=== PATIENT | female | born 1995 | race Caucasian/White ===

== ENCOUNTER 2017-01-18 15:27 | Emergency (ER) | payer MEDICAID ==
[2017-01-18 16:05] VITALS: TEMP 99; BMI 28.2
[2017-01-18] MEDS ORDERED: Sodium Chloride 0.9% 1,000 ML IV STA (16:33)
[2017-01-18 17:07] LABS: ADD MANUAL DIFF? NO
[2017-01-18 17:15] LABS: BASO # 0.02 K/mm3 (0.0-2.0); BASO % 0.3 % (0.0-3.0); EOS # 0.1 (0.0-0.7); EOS % 1.3 % (1.5-5.0); GRAN # 2.86 (1.4-6.5); HEMATOCRIT 39.1 % (36.0-48.0); LYMPH # 2.9 (1.2-3.4); LYMPH % 45.4 % (22.0-35.0); MEAN CELL VOLUME 87.7 fL (80.0-105.0); MEAN CORPUSCULAR HEMOGLOBIN 29.6 pg (25.0-35.0); MEAN CORPUSCULAR HGB CONC 33.8 g/dl (31.0-37.0); MEAN PLATELET VOLUME 10.2 fl (7.0-11.0); MONO # 0.5 (0.1-0.6); PLATELET COUNT 360 10^3/uL (120.0-450.0); RED CELL DISTRIBUTION WIDTH 13.4 % (11.5-14.5); WHITE BLOOD COUNT 6.4 10^3/ul (4.5-11.0)
[2017-01-18 17:23] LABS: INR 1.12 (0.93-1.08); PARTIAL THROMBOPLASTIN TIME 29.5 Seconds (23.7-30.8)
[2017-01-18 17:25] LABS: ALB/GLOB RATIO 1.3 (1.1-1.8); ALKALINE PHOSPHATASE 69 U/L (38-133); ALT/SGPT 46 U/L (7-56); AST/SGOT 41 U/L (15-39); BILIRUBIN,TOTAL 0.6 mg/dL (0.2-1.3); BLOOD UREA NITROGEN 9 mg/dL (7-21); CALCIUM 9.7 mg/dL (8.4-10.5); CARBON DIOXIDE 25 mmol/L (21-33); CHLORIDE 103 mmol/L (95-110); GFR AFRICAN-AMERICAN > 60; GLUCOSE,RANDOM 94 mg/dL (70-110); LIPASE 26 U/L (23-300); POTASSIUM 3.9 mmol/L (3.6-5.0); TOTAL PROTEIN 8.1 g/dL (5.8-8.3)
--- NOTE | 2017-01-18 17:27 | ED PDOC ---
Arrival/HPI - General Chief Complaint: Abdominal Pain Time Seen by Provider: 01/18/17 16:16 Historian: Patient - History of Present Illness Narrative History of Present Illness (Text): 01/18/17 17:25 Patient with no past medical history, complains of one day history of constant left lower quadrant abdominal pain, associated with nausea and multiple episodes of diarrhea. Patient stated that she had a total of 6 episodes today and 3 of those episodes she noted bright red blood in her stool. Otherwise: (-) vomiting, (-) travel, (-) recent antibiotic use, (-) sick contacts, (-) recent food intake that could have caused her symptoms, (-) similar episodes in the past, (-) urinary symptoms, (-) fever, (-) melena, (-) hematochezia. Has no history of prior abdominal surgery. MARNID Fahad Past Medical History - Provider Review Nursing Documentation Reviewed: Yes - Infectious Disease Hx of Infectious Diseases: None - Psychiatric Hx Substance Use: No - Anesthesia Hx Anesthesia: No Hx Anesthesia Reactions: No Hx Malignant Hyperthermia: No Family/Social History - Physician Review Nursing Documentation Reviewed: Yes Family/Social History: No Known Family HX Smoking Status: Never Smoked Hx Alcohol Use: No Hx Substance Use: No Allergies/Home Meds Allergies/Adverse Reactions: Allergies No Known Allergies Allergy (Verified 01/18/17 16:05) Review of Systems - Review of Systems Constitutional: Normal. absent: Fatigue, Weight Change, Fevers Respiratory: Normal. absent: SOB, Cough, Sputum Cardiovascular: Normal. absent: Chest Pain, Palpitations, Edema Gastrointestinal: Normal, Abdominal Pain, Diarrhea, Nausea Musculoskeletal: Normal. absent: Arthralgias, Back Pain, Neck Pain Skin: Normal. absent: Rash, Pruritis, Skin Lesions Physical Exam - Physical Exam Narrative Physical Exam (Text): 01/18/17 17:28 GENERAL APPEARANCE: Patient is awake, alert, oriented x 3, she is smiling, in no acute distress, sitting comfortably in bed. SKIN: Warm, dry; (-) cyanosis. EYES: (-) conjunctival pallor, (-) scleral icterus. ENMT: Mucous membranes dry. NECK: (-) tenderness, (-) stiffness, (-) lymphadenopathy. CHEST AND RESPIRATORY: (-) rales, (-) rhonchi, (-) wheezes; breath sounds equal bilaterally. HEART AND CARDIOVASCULAR: (-) irregularity; (-) murmur, (-) gallop. ABDOMEN AND GI: (-) distention. Bowel sounds active; (-) tenderness to deep palpation, (-) guarding, (-) rebound, (-) palpable masses, (-) CVA tenderness. RECTAL : (-) tenderness, (-) mass, (-) stool impaction. Stool brown in color, guiac (-). 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 EXTREMITIES: (-) deformity, (-) edema, (+) distal pulses. NEURO AND PSYCH: Mental status as above; (-) focal findings. Vital Signs Temp Pulse Resp BP Pulse Ox 01/18/17 18:54 82 16 106/72 97 01/18/17 16:00 99 F 87 18 115/84 99 Medical Decision Making ED Course and Treatment: 01/18/17 17:28 21 yo F with 1 day history of abdominal pain, nausea and diarrhea with 3 episodes of bloody stools, likely gastroenteritis. Plan: -- Labs -- IV fluids -- Urinalysis -- Pepcid / Zofran / Toradol -- Reassess and disposition -- Stool for C. difficile and culture 01/18/17 18:28 Labs reviewed and are noted to be within normal limits. Diagnostic results discussed with the patient in great detail. On reevaluation, patient is laying in bed comfortably in no acute distress. Patient reports significant improvement of her symptoms, denies any nausea, abdominal pain or diarrhea at the present time. On exam abdomen remains soft with no tenderness to deep palpation, no guarding, no rebound. Based on history, exam and diagnostic results plan will be for outpatient follow -up. Patient states she fully agrees with and understands discharge instructions. States that she agrees with the plan and disposition. Verbalized and repeated discharge instructions and plan. I have given the patient opportunity to ask any additional questions. Follow up with primary care physician in 1-2 days without fail. Advised to take medication as prescribed. Return to the emergency room at any time for any new or worsening symptoms. - Lab Interpretations Lab Results: 01/18/17 16:50 01/18/17 16:50 Lab Results 01/18/17 17:15: Urine Color Yellow, Urine Appearance Sl cloudy, Urine pH 7.0, Ur Specific [place] 1.020, Urine Protein Negative, Urine Glucose (UA) Negative, Urine Ketones Negative, Urine Blood Moderate H, Urine Nitrate Negative, Urine Bilirubin Negative, Urine Urobilinogen 0.2, Ur Leukocyte Esterase Negative, Urine RBC 2 - 5, Urine WBC 0 - 2, Ur Epithelial Cells 1 - 3 01/18/17 16:50: Sodium 139, Potassium 3.9, Chloride 103, Carbon Dioxide 25, Anion Gap 15, BUN 9, Creatinine 0.6, Est GFR ( Amer) > 60, Est GFR (Non- Af Amer) > 60, Random Glucose 94, Calcium 9.7, Total Bilirubin 0.6, AST 41 H, ALT 46, Alkaline Phosphatase 69, Total Protein 8.1, Albumin 4.6, Globulin 3.5, Albumin/Globulin Ratio 1.3, Lipase 26 01/18/17 16:50: PT 12.1 H, INR 1.12 H, APTT 29.5 01/18/17 16:50: WBC 6.4, RBC 4.46, Hgb 13.2, Hct 39.1, MCV 87.7, MCH 29.6, MCHC 33.8, RDW 13.4, Plt Count 360, MPV 10.2, Gran % 45.0 L, Lymph % (Auto) 45.[address] H, [place] % (Auto) 8.0 H, Eos % (Auto) 1.3 L, Baso % (Auto) 0.3, Gran # 2.86, Lymph # 2.9, 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 Disposition/Present on Arrival - Present on Arrival Any Indicators Present on Arrival: No History of DVT/PE: No History of Uncontrolled Diabetes: No Urinary Catheter: No History of Decub. Ulcer: No History Surgical Site Infection Following: None - Disposition Have Diagnosis and Disposition been Completed?: Yes Diagnosis: Abdominal pain, Diarrhea Disposition: HOME/ ROUTINE Disposition Time: 18:31 Patient Plan: Discharge Condition: IMPROVED Discharge Instructions (ExitCare): Gastroenteritis (ED), Acute Abdominal Pain ( ED) Print Language: ANGOLAN Additional Instructions: Thank you for letting us take care of you today. You were treated for abdominal pain, diarrhea, likely gastroenteritis. The emergency medical care you received today was directed at your acute symptoms. If you were prescribed any medication , please fill it and take as directed. It may take several days for your symptoms to resolve. Return to the Emergency Department if your symptoms worsen , do not improve, or if you have any other problems. Please contact your doctor in 2 days for re-evaluation and follow up. Bring any paperwork you were given at discharge with you along with any medications you are taking to your follow up visit. Our treatment cannot replace ongoing medical care by a primary care provider (PCP) outside of the emergency department. Thank you for allowing the [facility] team to be part of your care today. Prescriptions: Famotidine [Pepcid] 40 mg PO DAILY #20 tablet Ondansetron ODT [Zofran ODT] 4 mg PO DAILY PRN #20 odt PRN Reason: Nausea/Vomiting Referrals: Tavon Vásquez MD [Primary Care Provider] - Follow up with primary Forms: WORK NOTE
[2017-01-18 17:33] LABS: URINE APPEARANCE SL CLOUDY (CLEAR); URINE BILIRUBIN NEGATIVE (NEGATIVE); URINE BLOOD MODERATE (NEGATIVE); URINE COLOR YELLOW (YELLOW); URINE GLUCOSE (UA) NEGATIVE (NEGATIVE); URINE KETONE NEGATIVE (NEGATIVE); URINE LEUKOCYTE ESTERASE NEGATIVE Leu/uL (NEGATIVE); URINE PROTEIN NEGATIVE mg/dL (<30 mg/dL); URINE UROBILINOGEN 0.2 E.U./dL (<1 E.U./dL)
[2017-01-18 17:33] LABS: SODIUM 139 mmol/L (132-148)
[2017-01-18 17:54] LABS: URINE WBC 0 - 2 /hpf (0-6)
[2017-01-18 19:02] VITALS: BP 106/72; PULSE 82; RESP 16; O2SAT 97
== END 2017-01-18 19:10 | disposition home or self-care (01) ==
LOC: ED 15:27
DX: R19.7 Diarrhea, unspecified (principal); R10.32 Left lower quadrant pain
CPT/HCPCS: 80053; 81001; 83690; 85025; 85610; 85730; 96361; 96374; 96375; 99284; J1885; J2405; J7040